=== PATIENT | female | born 1985 | race American Indian/Alaskan Native ===

== ENCOUNTER 2022-02-26 12:45 | Outpatient (CLI) | payer OTHER ==
--- NOTE | 2022-02-26 14:25 | Ultrasound Report ---
Limited OB Ultrasound Biophysical profile ultrasound Umbilical arterial ultrasound HISTORY: [facility]; NRNST. TECHNIQUE: Grayscale and color imaging performed. COMPARISON: None FINDINGS: Single viable intrauterine gestation with cephalic presentation. Heart rate was 136 bpm. TARSHA was 16 c m. Incidental note made of mild hydronephrosis in the kidneys. On biophysical profile, the fetus received a score of 2 out of 2 for movement, posture/tone, and TARSHA. Score was 0 out of 2 for breathing. Total score was 6 out of 8. On arterial umbilical ultrasound, the systolic to diastolic ratio average was 2.49 with a normal pers istent waveforms. The resistive index average was 0.6 with a normal persistent waveforms. IMPRESSION: 1. Single viable intrauterine gestation as above with incidental mild hydronephrosis in the kidneys. 2. Biophysical profile score of 6 out of 8. Breathing movements were not demonstrated within the time criteria for the exam. 3. Normal umbilical arterial ultrasound. Signer Name: Homer Kramer MD Signed: 02/26/2022 2:21 PM Workstation Name: [employer]
[2022-02-26 15:16] VITALS: BP 120/65
== END 2022-02-26 15:50 | disposition home or self-care (01) ==
LOC: TRG 12:45 → APU 12:47 → TRG 15:50
PROVIDERS: ATTEND Obstetrics & Gynecology
DX: Z34.93 Encounter for supervision of normal pregnancy, unspecified, third trimester (principal); Z3A.36 36 weeks gestation of pregnancy
CPT/HCPCS: 59025; 76815; 76819; 76820

== ENCOUNTER 2022-02-27 14:30 | Outpatient (CLI) | payer OTHER ==
[2022-02-27 15:25] VITALS: BP 112/61
--- NOTE | 2022-02-27 16:54 | Ultrasound Report ---
ULTRASOUND BIOPHYSICAL PROFILE INDICATION / CLINICAL INFORMATION: BPP/TARSHA. COMPARISON: None available. FINDINGS: BREATHING MOVEMENT = 2 GROSS BODY MOVEMENT = 2 TONE = 2 QUALITATIVE AMNIOTIC FLUID VOLUME = 2 TOTAL BIOPHYSICAL SCORE = 04/12 AMNIOTIC FLUID INDEX (cm) = 10.1 PRESENTATION: Cephalic. HEART RATE (beats per minute): 136 IMPRESSION: 1. biophysical profile = 04/12 Signer Name: Ricardo Palomino MD Signed: 02/27/2022 4:49 PM Workstation Name: [employer]
== END 2022-02-27 16:37 | disposition home or self-care (01) ==
LOC: LD 14:30 → TRG 14:30
PROVIDERS: ATTEND Obstetrics & Gynecology
DX: Z34.93 Encounter for supervision of normal pregnancy, unspecified, third trimester (principal); Z3A.36 36 weeks gestation of pregnancy
CPT/HCPCS: 59025; 76815; 76819

== ENCOUNTER 2022-03-24 15:11 | Inpatient (IN) | payer OTHER ==
[2022-03-24] MEDS ORDERED: LACTATED RINGERS 1000 ML IV SOLN IV SCH (16:45)
[2022-03-24] MEDS ORDERED: FAMOTIDINE 20 MG/2 ML INJ IV ONE ×2 (17:08→22:00)
[2022-03-24] MEDS ORDERED: BICITRA ORAL LIQD 30ML PO ONE ×2 (17:08→22:00)
[2022-03-24] MEDS ORDERED: METOCLOPRAMIDE 10 MG/2 ML INJ IV ONE ×2 (17:08→22:00)
[2022-03-24] MEDS ORDERED: fentaNYL 100 MCG/2 ML INJ IV ONE (17:20)
[2022-03-24] MEDS ORDERED: GENTAMICIN/NS 80 MG/100 ML 100 ML IV SCH (18:15)
--- NOTE | 2022-03-24 18:20 | History and Physical Report ---
History of Present Illness Date of examination: 03/24/22 Date of admission: 03/24/22 Chief complaint: see hpi History of present illness: Patient Name: OMER HERMAN Date of : 87 Patient Status: Inpatient Attending Provider: MELODIE LEBLANC Date: 03/20/22 17:03 Initialization Date: 03/20/22 17:03 Addendum entered and electronically signed by MELODIE LEBLANC MD 03/24/22 1 6:47: Pt was advised by hospital not to come in at scheduled time for the c/s due staffing and not having a room for her. She called the office c/o contractions and was advised to come if for evaluation. She is here in triage c/o having contractions and noted to have them regularly. Will proceed to prepare pt for scheduled c/s. Original Note: History of Present Illness Date of examination: 03/20/22 Date of admission: 03/24/22 Chief complaint: here for c/s History of present illness: Pt here for scheduled c/s. has been complicated by being AMA and EFW with HC <10%tile but overall growth normal. Also pyelectasis that re solved. Pt does have h/o heart sx as a teen and was referred to cardiology but did not follow this pregnacy. She has not had any complications or issues since this time or with previous pregnancies. Menstrual History Regularity: irregular LMP: 07/22/2021 LMP reliability: unknown LMP character: normal test type: urine test Date: 07/29/2021 BC at conception: none Planned ? no EDC Confirmation: 03/31/2022 Gestational Age: 39.0 weeks Past History : 4 Term Births: 1 Premature Births: 2 Living Children: 4 Para: 3 Mult. Births: 1 Prev : 1 Aborta: 0 Elect. Ab: 0 Spont. Ab: 0 Ectopics: 0 # 1 Delivery date: 2005 Weeks Gestation: 40 labor: no Delivery type: Hours of labor: 17 Anesthesia type: epidural Infant Sex: Male weight: 7-5 Comments: No complications # 2 Delivery date: 2012 Weeks Gestation: 36 labor: yes Delivery type: Hours of labor: 10 Anesthesia type: epidural Sex: Female weight: 5-2 Comments: IOL d/t SGA? # 3 Delivery date: 2018 Weeks Gestation: 36 Delivery type: Hours of labor: 0 Anesthesia type: spinal Infant Sex: Female weight: A: 4-2, B 4-2 Comments: Twin gestation, SROM, one twin breech, Female X2 Past Medical History: Reviewed and updated today: Heart murmur as an Past Surgical History: Reviewed and updated today: Open heart surgery @ 17 y.o. Social History: Patient is Smoking History: Patient is a former smoker. Risk Factors: Smoked Tobacco Use: Former smoker Cigarettes: Yes Year Quit: 2019 Years Since Last Quit: 3 Smokeless Tobacco Use: Never Passive Smoke Exposure: no HIV High Risk Behavior: no Caffeine Use: 1 drinks per day Exercise: no Exercise Counseling: yes Seatbelt Use: preg-drug and alcohol counsellor % Family History Risk Factors: Family History of NV in 1 Female Relative Age < 65: no Family History of NV in 1 Male Relative Age < 55: no No Dietary Counseling Reason: pn yes Past Medical History Anesthesia Complications: negative Anemia: negative Autoimmune Disorder: negative Bleeding Disorder: negative Blood Transfusions: negative Breast Disease: negative Diabetes: negative Heart Disease: negative Hypertension: negative Hepatitis/Liver Disease: negative Kidney Disease/UTI: negative Neurologic/Epilepsy/Migraines: negative Phlebitis/Varicosities: negative Psychiatric: negative Pulmonary Disease/Asthma: negative Thyroid Disease: negative Hospitalizations: negative Surgery (Non-medical assistant ob gyn): Open heart surgery @ 17 y.o. Abnormal PAP: negative HUE Exposure: negative Infertility: negative Uterine Anomaly: negative Uterine Surgery (not C/S): negative Other Gynecologic Problems: negative Social Hx: Patient is Smoking History: Patient is a former smoker. Infection History Hx of STD: gonorrhea HIV Risk Eval: no Hepatitis B Risk Eval: low risk Personal hx. of genital herpes: no Partner hx. of genital herpes: no Rash, Viral, or Febrile illness since last LMP? no Varicella/Chicken Pox Status: Previous Disease TB Risk: no Genetic History ADVANCED MATERNAL AGE Congenital Heart Defect: Mom: yes Dad: no Stacy Disease: Mom: no Dad: no Thalassemia Mom: no Dad: no Neural Tube Defect Mom: no Dad: no Down's Syndrome Mom: no Dad: no Anil-Sachs Mom: no Dad: no Sickle Cell Disease/Trait Mom: no Dad: no Hemophilia Mom: no Dad: no Muscular Dystrophy Mom: no Dad: no Cystic Fibrosis Mom: no Dad: no Ida Chorea Mom: no Dad: no Mental Retardation Mom: no Dad: no Fragile X Mom: no Dad: no Other Genetic/Chromosomal Disorder Mom: no Dad: no Child w/other defect Mom: no Dad: no Enviromental Exposures Xray Exposure: no Medication, drug, or alcohol use since LMP: no Chemical/Other Exposure: no Exposure to Cat Liter: no Hx of Parvovirus (Fifth Disease): no Occupational Exposure to Children: none Active Medications (reviewed today): 28 mg iron- 800 mcg tablet (pnv cmb#95-ferrous fumarate-fa) 1 tablet by mouth once a day ondansetron 8 mg tablet,disintegrating (ondansetron) 1 tablet by mouth every twelve hours Current Allergies (reviewed today): No known allergies Past History Past Medical History: other (see hpi) Past Surgical History: other (see hpi) ACCOUNTING ASSOCIATE History: other (see hpi) Family/Genetic History: other (see hpi) Social history: - Obstetrical History Expected Date of Delivery: 03/31/22 Actual Gestation: 39 Week(s) 0 Day(s) : 4 Para: 2 Number of Living Children: 3 Medications and Allergies Allergies Allergy/AdvReac Type Severity Reaction Status Date / Time No Known Allergies Allergy Unverified 03/18/22 16:41 Home Medications Medication Instructions Recorded Confirmed Last Taken Type Aspirin [Adult Aspirin] 81 mg PO DAILY 03/18/22 03/18/22 Unknown History Review of Systems All systems: negative - Physical Exam Cardiovascular: Normal S1, Normal S2 Lungs: Positive: Clear to auscultation, Normal air movement Abdomen: Positive: normal appearance, soft, guarding. Negative: distention, tenderness Genitourinary (Female): Positive: other (deferred) Results All other labs normal. Assessment and Plan - Patient Problems (1) 39 weeks gestation of Status: Acute (2) Previous delivery affecting Status: Acute Plan to address problem: -admit and prepare for c/s -consents signed and placed on the chart. Past History Past Medical History: other (see hpi) Past Surgical History: other (see hpi) ACCOUNTING ASSOCIATE History: other (see hpi) Family/Genetic History: other (see hpi) Social history: other (see hpi) - Obstetrical History Expected Date of Delivery: 03/31/22 Actual Gestation: 39 Week(s) 0 Day(s) : 4 Medications and Allergies Allergies Allergy/AdvReac Type Severity Reaction Status Date / Time No Known Allergies Allergy Unverified 03/18/22 16:41 Home Medications Medication Instructions Recorded Confirmed Last Taken Type Aspirin [Adult Aspirin] 81 mg PO DAILY 03/18/22 03/18/22 Unknown History Active Meds: Active Medications Lactated Ringer's (Lactated Ringers) 1,000 mls @ 2,250 mls/hr IV PREOP DOUG Stop: 03/25/22 18:57 Oxytocin/Sodium Chloride (Pitocin/Ns 30 Unit/500ml) 30 units in 500 mls @ 0 mls/hr IV TITR DOUG; Protocol Gentamicin Sulfate 80 mg/ (Sodium Chloride) 102 mls @ 200 mls/hr IV PREOP ONE; Protocol Stop: 03/24/22 18:44 Clindamycin HCl (Cleocin 900 Mg/50 Ml) 900 mg in 50 mls @ 100 mls/hr IV PREOP NR; Protocol Lactated Ringer's (Lactated Ringers 1000 Ml Iv Soln) 1,000 ml IV DIRECT DOUG - Vital Signs Vital signs: Vital Signs Pulse Ox 36 L 02/27/22 16:07 Temp Pulse Resp BP Pulse Ox 98.4 F 84 16 118/59 85 03/24/22 16:11 03/24/22 17:32 03/24/22 16:11 03/24/22 16:11 03/24/22 17:32 - Physical Exam Cardiovascular: Normal S1 Lungs: Positive: Clear to auscultation, Normal air movement Abdomen: Positive: normal appearance, soft. Negative: distention, tenderness Genitourinary (Female): Positive: other (deferred) Results All other labs normal. Assessment and Plan - Patient Problems (1) 39 weeks gestation of Current Visit: No Status: Acute Plan to address problem: see hpi (2) Previous delivery affecting Current Visit: No Status: Acute Plan to address problem: see hpi
[2022-03-24] MEDS ORDERED: LACTATED RINGERS 1,000 ML IV SCH (18:30)
[2022-03-24 18:53] LABS: Basophils # (Auto) 0.1 K/mm3 (0.0-0.1); Basophils % (Auto) 1.1 % (0.0-1.8); Eosinophils % (Auto) 0.3 % (0.0-4.3); Hematocrit 32.6 % (30.3-42.9); Hemoglobin 11.1 gm/dl (10.1-14.3); Lymphocytes # (Auto) 0.3 K/mm3 (1.2-5.4); Lymphocytes % (Auto) 6.1 % (13.4-35.0); Mean Corpuscular HGB Conc 34 % (30-34); Mean Corpuscular Volume 99 fl (79-97); Monocytes # (Auto) 0.5 K/mm3 (0.0-0.8); Platelet Count 114 K/mm3 (140-440); Red Blood Count 3.31 M/mm3 (3.65-5.03); Red Cell Distribution Width 12.9 % (13.2-15.2)
[2022-03-24] MEDS ORDERED: OXYTOCIN DRIP 30 UNITS/500 ML BAG IV SCH (19:00)
[2022-03-24] MEDS ORDERED: BUPIVACAINE/PF (0.5%) 5 MG/1 ML 30 ML VIAL INFILTRATI ONE (20:14)
[2022-03-24] MEDS ORDERED: ONDANSETRON 4 MG/2 ML INJ ONE (20:14)
[2022-03-24] MEDS ORDERED: PHENYLEPHRINE/NS 1,000 MCG/10 ML SYRINGE (OR USE) IV ONE (20:14)
[2022-03-24] MEDS ORDERED: ePHEDrine SULFATE 50 MG/1 ML INJ ONE (20:14)
[2022-03-24] MEDS ORDERED: LACTATED RINGERS 1,000 ML ONE (22:37)
--- NOTE | 2022-03-24 23:02 | Operative Report ---
Operative Report Operative Report: Date of procedure: 03/24/2022 Pre-operative diagnosis: 39 weeks Previous Post-operative diagnosis: Same Procedure name(s): Repeat low transverse section via Pfannenstiel skin incision Surgeon: Dr. Hayden Stripper [employer]: [employer] Anesthesia: Spinal QBL: 952 mL Urine output: 100 mL of clear urine out at end of procedure Fluids: 1500 mL Findings: Liveborn male infant weight 6 pounds 11 ounces Apgars of 8 and 9 at 1 and 5 minutes Normal ovaries normal fallopian tubes bilaterally normal uterus Nuchal cord x1 easily reduced Well-developed lower uterine segment Indications: Patient presents for elective repeat section. All risk benefits and alternatives were discussed with the patient. Patient was noted to have painful contractions prior to the onset of the section. Was deemed to be in latent labor. Procedure: Patient was taking to the operating room. Patient was then prepped and draped in sterile fashion after anesthesia was found to be adequate. A low transverse skin incision was made with the scalpel through previous incisional scar and carried down to the underlying layer of fascia with the Bovie. The fascia was then incised in the midline and this incision was extended bilaterally with the Bovie. The superior aspect of the fascia was grasped with Tito clamps tented upward and dissected off of the anterior rectus muscles with the scalpel. In similar fashion the inferior aspect of the fascia was grasped with Tito clamps tented upward and dissected off of the anterior rectus muscles. The rectus muscles were then bluntly divided in the midline. The peritoneum was identified and entered into sharply. The bladder blade was p laced. . A lower transverse uterine incision was made with the scalpel and extended bilaterally with the bandage scissors. Artificial rupture of membranes was performed yielding [clear amniotic fluid]. The infant's head was then delivered atraumatically. The anterior shoulder and rest of infant delivered without difficulty. Nuchal cord x1 was noted and easily reduced prior to delivery of body. The umbilical cord was clamped x2. The cord was cut. The infant was then placed in sterile bassinet. The placenta was manually extracted in its entirety. The uterus was exteriorized and cleared of all clots and debris. The uterine incision was closed using 0 Vicryl in a running locking fashion. [ A second imbricating layer of the same suture was then created.] The posterior cul-de-sac was copiously irrigated. The uterus was returned to the abdomen. The gutters were also irrigated. The anterior rectus muscles were reapproximated using 3-0 Vicryl. The anterior rectus fascia was reapproximated using 0 Vicryl in a running fashion. The subcuticular fat was reapproximated using 2-0 Vicryl in a running fashion. The skin was reapproximated with 4-0 Monocryl in a subcuticular stitch. The patient tolerated the procedure well. Sponge lap and needle counts were all correct x3. Patient was taken to the recovery room awake and in stable condition.
[2022-03-24] MEDS ORDERED: IBUPROFEN 800 MG TAB PO PRN (23:04)
[2022-03-24] MEDS ORDERED: MAGNESIUM HYDROXIDE (MOM) ORAL LIQD UDC PO PRN (23:04)
[2022-03-24] MEDS ORDERED: MORPHINE 4 MG/1 ML INJ IV PRN ×2 (23:04→23:27)
[2022-03-24] MEDS ORDERED: ACETAMINOPHEN 325 MG TAB PO PRN (23:04)
[2022-03-24] MEDS ORDERED: HYDROcodone/ACETAMINOPHEN 5-325 MG TAB PO PRN (23:04)
[2022-03-24] MEDS ORDERED: WITCH HAZEL/ GLYCERIN PAD TP PRN (23:04)
[2022-03-24] MEDS ORDERED: NALOXONE 0.4 MG/1 ML INJ IV PRN ×2 (23:04→23:27)
[2022-03-24] MEDS ORDERED: SIMETHICONE 80 MG CHEW TAB PO PRN (23:04)
[2022-03-24] MEDS ORDERED: IBUPROFEN 600 MG TAB PO PRN (23:04)
[2022-03-24] MEDS ORDERED: LANOLIN/ZINC/DIMETHICONE (LANSINOH) 7 GM TP PRN (23:04)
[2022-03-24] MEDS ORDERED: PROMETHAZINE 25 MG TAB PO PRN (23:27)
[2022-03-24] MEDS ORDERED: HYDROmorphone 1 MG/1 ML INJ IV PRN (23:27)
[2022-03-24] MEDS ORDERED: PROMETHAZINE 25 MG RECT SUPP PR PRN (23:27)
[2022-03-24] MEDS ORDERED: ONDANSETRON 4 MG/2 ML INJ IV PRN (23:27)
--- NOTE | 2022-03-24 23:29 | Anesthesia Day of Surgery ---
Anesthesia Day of Surgery - Day of Surgery Patient Examined: Yes Patient H&P Reviewed: Yes Patient is NPO: Yes Beta Blockers: No Cardiac Clearance: No Pulmonary Clearance: No Vance's Test: N/A
--- NOTE | 2022-03-24 23:29 | Anesthesia Consultation ---
Anesthesia Consult and Med Hx Date of service: 03/24/22 - Airway Anesthetic Teeth Evaluation: Good ROM Head & Neck: Adequate Mental/Hyoid Distance: Adequate Mallampati Class: Class II Intubation Access Assessment: Probably Good - Pulmonary Exam CTA: Yes - Cardiac Exam Cardiac Exam: RRR - Pre-Operative Health Status ASA Pre-Surgery Classification: ASA2 Proposed Anesthetic Plan: Spinal Nerve Block: Bairon Tap - Pulmonary Hx Smoking: Yes (Former) Hx Asthma: No Hx Respiratory Symptoms: No SOB: No COPD: No Home Oxygen Therapy: No Hx Pneumonia: No Hx Sleep Apnea: No - Cardiovascular System Hx Hypertension: No Hx Coronary Artery Disease: No Hx Heart Attack/AMI: No Hx Angina: No Hx Percutaneous Transluminal Coronary Angioplasty (PTCA): No Hx Cardia Arrhythmia: No Hx Pacemaker: No Hx Internal Defibrillator: No Hx Valvular Heart Disease: No Hx Heart Murmur: Yes Hx Peripheral Vascular Disease: No - Central Nervous System Hx Neuromuscular Disorder: No Hx Seizures: No CVA: No Hx Back Pain: No Hx Psychiatric Problems: No - Gastrointestinal Hx Ulcer: No Hx Gastroesophageal Reflux Disease: No - Endocrine Hx Renal Disease: No Hx End Stage Renal Disease: No Hx Cirrhosis: No Hx Liver Disease: No Hx Insulin Dependent Diabetes: No Hx Non-Insulin Dependent Diabetes: No Hx Thyroid Disease: No Hx Hypothyroidism: No Hx Hyperthyroidism: No - Hematic Hx Anemia: No Hx Sickle Cell Disease: No - Other Systems Hx Alcohol Use: No Hx Substance Use: No Hx Cancer: No Hx Obesity: No
--- NOTE | 2022-03-24 23:41 | Progress Note ---
Spinal Anesthesia Block - Spinal Anesthesia Block Start Time: 21:56 Stop Time: 22:04 Performed by:: MOISÉS RAYO Procedure: The patient was placed in a sitting position on the OR table and monitors applied. A timeout was performed immediately prior to the start of the procedure. The patient was Prepped and draped in a sterile fashion and the skin was localized with 3 mL 1% lidocaine at L[4]-L[5] interspace. An introducer was placed into the back between L4-L5 and a 25g spinal needle was advanced into the intrathecal space until clear, free flowing CSF was observed. 1.8cc of 0.75% hyperbaric bupivacaine + 0.5mcg Precedex was injected into the intrathecal space and the spinal needle was removed. The patient tolerated the procedure well and there were no immediate complications noted.
--- NOTE | 2022-03-24 23:42 | Progress Note ---
Regional Anesthesia Block - Regional Anesthesia Block Start Time: 23:17 Stop Time: 23:24 Performed By:: MOISÉS RAYO Procedure: During the pre-op interview the patient agreed to and signed a consent for a TAP block for post surgical pain management. After her C/S was completed a time out was performed prior to the start of the procedure. The Trans Abdominal Plane was identified bilaterally via ultrasound. The skin was prepped bilaterally with chlorhexidine and a 22g stimuplex needle was advanced to the area between the internal oblique muscle and the trans abdominal plane. Marcaine 0.25% 30mlwas injected under ultrasound guidance on the left and right side. Negative aspiration every 5mL, There was no change in the patients heart rate or rhythm and the patient tolerated the procedure well. No apparent complications were observed.
[2022-03-24] MEDS ORDERED: fentaNYL-BUPIV 2 MCG/ML-0.125% 200 MCG/100 ML BAG EPIDURAL SCH (23:45)
[2022-03-25] MEDS ORDERED: LACTATED RINGERS 1,000 ML IV SCH (01:30)
[2022-03-25] MEDS: CLINDAMYCIN 600 MG/50 mL 600 MG/50 ML BAG IV SCH ×2 (01:43→09:55)
[2022-03-25] MEDS: HYDROmorphone 1 MG/1 ML INJ IV PRN ×2 (01:52→21:49)
[2022-03-25] MEDS: KETOROLAC 30 MG/1 ML INJ IV PRN ×2 (03:55→09:55)
[2022-03-25] MEDS: HYDROcodone/ACETAMINOPHEN 5-325 MG TAB PO PRN ×3 (05:57→18:16)
[2022-03-25] MEDS ORDERED: TETANUS,DIPH,PERTUSS(ACELL) VACCINE 0.5 ML SYRINGE IM ONE (06:00)
--- NOTE | 2022-03-25 08:03 | Progress Note ---
Assessment and Plan Patient resting w/o complaints. Lochia scant, fundus firm, VSSAF, H&H ordered for 1100. - Patient Problems (1) delivery delivered Current Visit: Yes Status: Acute Plan to address problem: continue postop pathway advance diet and activity as tolerated Subjective - Subjective Date of service: 03/25/22 Principal diagnosis: postop day #1 <12hrs post delivery, repeat c/s Patient reports: appetite normal, pain well controlled, no flatus, no nauseated : doing well Objective - Vital Signs Latest vital signs: Vital Signs Temp Pulse Resp BP BP Pulse Ox Pulse Ox 03/25/22 06:57 18 03/25/22 05:57 20 03/25/22 05:49 97.8 F 64 21 100/51 100 03/25/22 04:25 18 03/25/22 03:55 20 03/25/22 02:22 18 03/25/22 01:52 20 03/25/22 01:10 97.5 F L 88 20 122/60 99 100 03/24/22 17:32 84 85 03/24/22 17:31 84 97 03/24/22 17:26 83 98 03/24/22 17:22 95 H 91 03/24/22 17:21 87 97 03/24/22 17:16 92 H 100 03/24/22 17:11 82 99 03/24/22 17:06 91 H 98 03/24/22 17:01 91 H 99 03/24/22 16:56 86 99 03/24/22 16:51 85 100 03/24/22 16:46 84 98 03/24/22 16:41 83 98 03/24/22 16:36 83 97 03/24/22 16:31 85 100 03/24/22 16:26 79 100 03/24/22 16:21 87 97 03/24/22 16:16 80 99 03/24/22 16:11 98.4 F 82 16 118/59 99 03/24/22 16:06 88 99 03/24/22 16:01 79 100 03/24/22 15:56 81 99 03/24/22 15:51 94 H 96 03/24/22 15:47 92 H 118/59 03/24/22 15:46 93 H 97 Intake and Output 03/24/22 03/25/22 03/25/22 23:59 07:59 15:59 Intake Total 720 Output Total 700 Balance 20 Intake: Oral 480 Intake, Free Water 240 Output: Urine 700 Indwelling Catheter 700 Other: Total, Intake Amount 480 Total, Output Amount 700 Weight 87.09 kg Estimated Blood Loss 952 - Exam Breasts: Present: normal Cardiovascular: Present: Regular rate Lungs: Present: Normal air movement Abdomen: Present: normal appearance, soft. Absent: distention, tenderness, guarding Vulva: both: normal Uterus: Present: normal, firm, fundal height at umbilicus Extremities: Present: normal Incision: Present: normal, dry, dressed - Labs Labs: Abnormal lab results 03/24/22 Range/Units Unknown RBC 3.31 L (3.65-5.03) M/mm3 MCV 99 H (79-97) fl MCH 34 H (28-32) pg RDW 12.9 L (13.2-15.2) % Plt Count 114 L (140-440) K/mm3 Lymph % (Auto) 6.1 L (13.4-35.0) % [place] % (Auto) 10.0 H (0.0-7.3) % Lymph # (Auto) 0.3 L (1.2-5.4) K/mm3 Seg Neutrophils % 82.5 H (40.0-70.0) %
--- NOTE | 2022-03-25 10:58 | Post Anesthesia Evaluation ---
- Post Anesthesia Evaluation Patient Participated: Yes Airway Patent: Yes Stable Respiratory Function: Yes Nausea/Vomiting: No Temp > 96.8F: Yes Pain Manageable: Yes Adequeate Hydration: Yes Anesthesia Complications: No Block Receding Appropriately: Yes Patient on Ventilator: No
[2022-03-25 13:52] LABS: Hemoglobin 10.5 gm/dl (10.1-14.3)
[2022-03-26] MEDS: HYDROcodone/ACETAMINOPHEN 5-325 MG TAB PO PRN ×2 (00:57→10:32)
--- NOTE | 2022-03-26 07:53 | Discharge Summary ---
Providers - Providers Date of Admission: 03/24/22 22:00 Date of discharge: 03/26/22 (Pt has strong desire to go home. ) Attending physician: MELODIE LEBLANC Primary care physician: MELODIE LEBLANC Hospitalization Reason for admission: section Delivery: Procedure: repeat low transverse Episiotomy: none Laceration: none Incision: normal, dry, intact Other procedures: none complications: none Discharge diagnosis: IUP at term delivered baby: male Hospital course: S: Pt doing well. Ambulating, voiding, passing flatus. BC: Possible BTL. O: VSS. Adequate I&O's. Incision open to air, intact, no s/sx of infection, no drainage noted. Fundus firm, minimal bleeding noted. H/H 10.5/32.0. A: 37 y.o. s/p rpt . In good condition . P: Discharge home with instructions. To schedule son's circumcision and her incision check in 1 week in office. Condition at discharge: Good Disposition: 01 HOME / SELF CARE / HOMELESS Plan - Discharge Medications Prescriptions: Docusate Sodium [Colace] 100 mg PO BID PRN #60 capsule PRN Reason: Constipation Lidocain2.5%/Prilocai2.5% [Emla] 2 gm TP ONCE #1 tube Ferrous Sulfate [Feosol 325 MG tab] 325 mg PO QDAY #60 tablet Ibuprofen [Motrin 800 MG tab] 800 mg PO Q8HR PRN #30 tablet PRN Reason: Pain, Moderate (4-6) oxyCODONE /ACETAMINOPHEN [Percocet 5/325] 1 tab PO Q4HR #30 tab - Provider Discharge Summary Activity: routine, no sex for 6 weeks, no heavy lifting 4 weeks, no strenuous exercise Diet: routine Instructions: routine Additional instructions: [] Smoking cessation referral if applicable(refer to patient education folder for contact #) [] Refer to [facility] Booklet Call your doctor immediately for: * Fever > 100.5 * Heavy vaginal bleeding ( >1 pad per hour) * Severe persistent headache * Shortness of breath * Reddened, hot, painful area to leg or breast * Drainage or odor from incision. * Keep incision clean and dry at all times and follow doctor's instructions regarding bathing/showering - Follow up plan Follow up: MELODIE LEBLANC MD [Primary Care Provider] - 7 Days (- Congratulations on the of your baby boy! - Thank you for allowing us to take care of you! - Please schedule your son's circumcision appointment in the office in 1 week. - You have been given a prescription for your son's circumcision. Please do not use this cream at home, but bring it with you to your son's circumcision appointment. - Please schedule your incision check in the office in 1 week. You can try and schedule it on the same day as your son's cricumcision appointment. - Should you have any questions or concerns after discharge, please do not hesitate to call the office at . )
[2022-03-26 13:57] VITALS: BP 110/57
== END 2022-03-26 13:49 | disposition home or self-care (01) | DRG 766 ==
LOC: TRG 15:11 → APU 15:13 → TRG 22:00 → OB 03-25 00:50
PROVIDERS: ADMIT Obstetrics & Gynecology; ATTEND Obstetrics & Gynecology
PROC: 10D00Z1 Extraction of Products of Conception, Low, Open Approach (ICD-10-PCS; principal; 2022-03-24)
PROC: 3E0T3BZ Introduction of Anesthetic Agent into Peripheral Nerves and Plexi, Percutaneous Approach (ICD-10-PCS; 2022-03-24)
PROC: 3E0234Z Introduction of Serum, Toxoid and Vaccine into Muscle, Percutaneous Approach (ICD-10-PCS; 2022-03-25)
DX: O34.211 Maternal care for low transverse scar from previous cesarean delivery (principal); O69.81X0 Labor and delivery complicated by cord around neck, without compression, not applicable or unspecified; Z37.0 Single live birth; Z3A.39 39 weeks gestation of pregnancy; Z23 Encounter for immunization; Z87.891 Personal history of nicotine dependence
CPT/HCPCS: 36415; 85014; 85018; 85025; 86592; G0378; J3490; J7121; J7502; J1170; J1885; J2370; J2405; J2765; J3010; J7120